=== PATIENT | male | born 1980 | race Caucasian/White ===

== ENCOUNTER 2018-05-26 08:35 | Inpatient (IN) | payer OTHER ==
[2018-05-26 08:59] VITALS: BMI 27.3
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
[2018-05-26] MEDS ORDERED: ACETAMINOPHEN 325 MG TABLET (FP) PO PRN (09:24)
[2018-05-26] MEDS ORDERED: MAGNESIUM CITRATE 300 ML BOTTLE PO PRN (09:24)
[2018-05-26] MEDS ORDERED: MENTHOL/PHENOL 1 EACH UD MM PRN (09:24)
[2018-05-26] MEDS ORDERED: MAG HYDROX/AL HYDROX/SIMETH 30 ML UNIT-DOSE CUP PO PRN (09:24)
[2018-05-26] MEDS ORDERED: LOPERAMIDE HCL 2 MG CAPSULE PO PRN (09:24)
[2018-05-26] MEDS ORDERED: guaiFENesin/D-METHORPHAN HB 10 ML UNIT-DOSE CUPS PO PRN (09:24)
[2018-05-26] MEDS ORDERED: MAGNESIUM HYDROX 2400MG/30ML ORAL SUSPENSION 30 ML CUP PO PRN (09:24)
[2018-05-26] MEDS ORDERED: hydrOXYzine PAMOATE 50 MG CAPSULE (FP) PO PRN (09:24)
[2018-05-26] MEDS ORDERED: P-EPHED 60MG/TRIPROLIDI 2.5MG TABLET PO PRN (09:24)
[2018-05-26] MEDS ORDERED: METHADONE HCL 10 MG TABLET (FOR DETOX USE ONLY) PO ONE ×2 (10:20→23:00)
[2018-05-26] MEDS: NICOTINE 21 MG/24 HOURS TOPICAL PATCH TD SCH (10:51)
[2018-05-26] MEDS: CYCLOBENZAPRINE HCL 10 MG TABLET (FP) PO PRN ×2 (10:53→22:24)
[2018-05-26] MEDS: cloNIDine HCL 0.1 MG TABLET PO SCH ×2 (10:53→22:24)
[2018-05-26] MEDS: diazePAM 5 MG TABLET PO PRN ×3 (10:53→22:24)
[2018-05-26] MEDS: PRENATAL VITAMINS W/ FOLIC ACID TABLET (FP) PO SCH (10:54)
[2018-05-26] MEDS: IBUPROFEN 400 MG TABLET (FP) PO PRN ×2 (10:59→17:10)
--- NOTE | 2018-05-26 13:32 | EKG ---
Test Reason : Blood Pressure : / mmHG Vent. Rate : 063 BPM Atrial Rate : 063 BPM P-R Int : 128 ms QRS Dur : 092 ms QT Int : 372 ms P-R-T Axes : 032 051 040 degrees QTc Int : 380 ms NORMAL SINUS RHYTHM NORMAL ECG NO PREVIOUS ECGS AVAILABLE Confirmed by CHAPITO MURRAY MD ([id number]) on 05/26/2018 1:32:48 PM Referred By: Confirmed By:CHAPITO MURRAY MD
--- NOTE | 2018-05-26 14:15 | CONSULT ---
[facility] Psychiatric Consult - Data Date of interview: 05/26/18 Admission source: [facility] Identifying data: First admission to [facility] for this 37 y/o male seeking detoxification treatment, on , for heroin, cocaine (crack) and alcohol dependence. Patient is single, a father of two, homeless, unemployed and currently without income. Substance Abuse History: Confirmed by the patient in this interview. Details in [facility] report : Smoking history: Current every day smoker. Have you smoked in the past 12 months: Yes. Aproximately how many cigarettes per day: 20. Cigars Per Day: 0. Hx Chewing Tobacco Use: No. Initiated information on smoking cessation: Yes. 'Breaking Loose' booklet given: 05/26/18. - Substance & Tx. History. Hx Alcohol Use: Yes. Hx Substance Use: Yes. Substance Use Type : Alcohol, Cocaine, Heroin. Hx Substance Use [facility]: [facility] - Substances Abused. Heroin. Route: Injection. Frequency: Daily. Amount used: 8 to 10 bags. Age of first use: 36. Date of Last Use: 05/25/18. Cocaine. Route: Smoking. Frequency: 1-2 times per week. Amount used: 100$ . Age of first use: 36. Date of Last Use: 05/25/18. Alcohol. Route: Oral. Frequency: 1-2 times per week. Amount used: 4 of 24 ozs of beer. Age of first use: 13. Date of Last Use: 05/25/18 Medical History: History of spinal fusion. Patient endorses good general health. Recent history of overdose with heroin (saved by naloxone on 05/25/18) as per self-report. Psychiatric History: No reported history of psychiatric hospitalizations. Patient indicates that he has been diagnosed with Bipolar Disorder (2007). Treated in [facility] (just released a week ago after four years of incarceration). managed on a regimen of wellbutrin SR 200 mg po bid + trazodone 100 mg hs + zyprexa 10 mg po hs. No referral to OPD care. Mr Alexandre denies history of suicide attempts. Physical/Sexual Abuse/Trauma History: Stressors : homelessness, estrangement from relatives, unemployment, years of incarceration, financial difficulties and lack of vocational skills. Patient denies history of abuse. Additional Comment: Urine Drug Screen Results: RIC-Cocaine, OPI-Opiates. Noted. Mental Status Exam - Mental Status Exam Alert and Oriented to: Time, Place, Person Cognitive Function: Good Patient Appearance: Well Groomed (muscular built, tattoos on both forearms) Mood: Nervous, Anxious, Hopeful Affect: Appropriate, Normal Range Patient Behavior: Fatigued, Cooperative Speech Pattern: Clear, Appropriate Voice Loudness: Normal Thought Process: Goal Oriented Thought Disorder: Not Present Hallucinations: Denies Suicidal Ideation: Denies Homicidal Ideation: Denies Insight/Judgement: Fair Sleep: Poorly, Difficulty falling asleep Appetite: Good Muscle strength/Tone: Normal Gait/Station: Normal Psychiatric Findings - Problem List ([place] 1, 2,3) (1) Opioid dependence with withdrawal Current Visit: Yes Status: Acute (2) Alcohol abuse Current Visit: Yes Status: Acute (3) Cocaine dependence Current Visit: Yes Status: Acute (4) Nicotine dependence Current Visit: Yes Status: Acute (5) Substance induced mood disorder Current Visit: Yes Status: Acute (6) Bipolar disorder Current Visit: Yes Status: Chronic Comment: As per self-report. On medications. Treated in alf until release a week ago. (7) Insomnia Current Visit: Yes Status: Acute - Initial Treatment Plan Initial Treatment Plan: Psychoeducation. Sleep hygiene. Detoxification in process. AA/NA meetings. Relapse prevention discussed with the patient ( naltrexone, suboxone, methadone, AA/NA doctrine, counseling). Resume medications : trazodone 100 mg po hs + wellbutrin XL 300 mg po daily ( substitution for SR formulation). Side effects/benefits of each drug are discussed with the patient. Made aware of risks of seizures, metabolic syndrome , cardiovascular adverse events and priapism. Patient is in agreement with this plan of care. Consent (verbal) : given. Observation.
[2018-05-26 21:54] LABS: URINE APPEARANCE CLEAR; URINE BILIRUBIN NEGATIVE (<2.0 mg/dL); URINE COLOR LTYELLOW; URINE GLUCOSE (UA) NEGATIVE (NEGATIVE); URINE KETONE NEGATIVE (NEGATIVE); URINE LEUK ESTERASE NEGATIVE (NEGATIVE); URINE NITRITE NEGATIVE (NEGATIVE); URINE PROTEIN NEGATIVE (NEGATIVE); URINE UROBILINOGEN NEGATIVE mg/dL (0.2-1.0)
[2018-05-26] MEDS ORDERED: MELATONIN 5 MG TABLETS PO PRN (22:00)
[2018-05-26] MEDS: OLANZapine 10 MG TABLET PO SCH (22:24)
[2018-05-26] MEDS: THIAMINE HCL 100 MG TABLET (FP) PO SCH (22:24)
[2018-05-26] MEDS: traZODone HCL 100 MG TABLET (FP) PO SCH (22:24)
[2018-05-26] MEDS: NICOTINE POLACRILEX 2 MG GUM BUC PRN (22:25)
[2018-05-27] MEDS ORDERED: METHADONE HCL 10 MG TABLET (FOR DETOX USE ONLY) PO ONE (10:00)
[2018-05-27] MEDS: CYCLOBENZAPRINE HCL 10 MG TABLET (FP) PO PRN ×2 (10:13→22:06)
[2018-05-27] MEDS: NICOTINE 21 MG/24 HOURS TOPICAL PATCH TD SCH (10:13)
[2018-05-27] MEDS: cloNIDine HCL 0.1 MG TABLET PO SCH ×2 (10:13→22:04)
[2018-05-27] MEDS: PRENATAL VITAMINS W/ FOLIC ACID TABLET (FP) PO SCH (10:13)
[2018-05-27] MEDS: diazePAM 5 MG TABLET PO PRN ×3 (10:13→22:04)
[2018-05-27] MEDS: NICOTINE POLACRILEX 2 MG GUM BUC PRN ×2 (10:13→13:30)
[2018-05-27 10:17] LABS: HEMATOCRIT 42.4 % (35.4-49); HEMOGLOBIN 14.2 GM/dL (11.7-16.9); MCH 30.9 pg (25.7-33.7); MCHC 33.6 g/dl (32.0-35.9); MEAN PLT VOLUME 8.4 fl (7.5-11.1); PLATELET COUNT 249 K/MM3 (134-434); RBC 4.61 M/mm3 (4.00-5.60); RDW 13.7 % (11.9-15.9); WHITE BLOOD COUNT 8.2 K/mm3 (4.0-10.0)
[2018-05-27 10:44] LABS: ALBUMIN 4.2 g/dl (3.4-5.0); ALK PHOS 99 U/L (45-117); ANION GAP 9 MMOL/L (8-16); BILIRUBIN,TOTAL 0.5 mg/dL (0.2-1); BLOOD UREA NITROGEN 15 mg/dL (7-18); CALCIUM 8.1 mg/dL (8.5-10.1); CHLORIDE 100 mmol/L (98-107); CO2 30 mmol/L (21-32); CREATININE 0.9 mg/dL (0.55-1.3); GLUCOSE,RANDOM 104 mg/dL (74-106); SGOT/AST 262 U/L (15-37); SGPT/ALT 169 U/L (13-61); SODIUM 139 mmol/L (136-145); TOT PROT 6.8 g/dl (6.4-8.2)
[2018-05-27] MEDS: IBUPROFEN 400 MG TABLET (FP) PO PRN ×2 (11:03→22:06)
--- NOTE | 2018-05-27 13:49 | PN ---
[facility] COWS - Scale Resting Pulse: 1= [place] 81-100 Sweatin= Chills/Flushing Restless Observation: 3= Extraneous Movement Pupil Size: 0= Normal to Room Light Bone or Joint Aches: 2= Severe Diffuse Aches Runny Nose/ Eye Tearin= Runny Nose/Eyes GI Upset > 30mins: 3= Vomiting/Diarrhea Tremor Observation of Outstretched Hands: 2= Slight Tremor Visible Yawning Observation: 0= None Anxiety or Irritability: 2=Irritable/Anxious Goose Flesh Skin: 0=Smooth Skin COWS Score: 16 BHS Progress Note (SOAP) Subjective: Sweating, headache, nausea Objective: 05/27/18 13:44 Last Vital Signs Temp Pulse Resp BP Pulse Ox 98.0 F 97 H 18 113/72 05/27/18 13:10 05/27/18 13:10 05/27/18 13:10 05/27/18 13:10 Laboratory Tests 05/26/18 05/27/18 05/27/18 13:35 05:45 05:45 WBC 8.2 RBC 4.61 Hgb 14.2 Hct 42.4 MCV 92.0 MCH 30.9 MCHC 33.6 RDW 13.7 Plt Count 249 MPV 8.4 Sodium 139 Potassium 4.0 Chloride 100 Carbon Dioxide 30 Anion Gap 9 BUN 15 Creatinine 0.9 Creat Clearance w eGFR > 60 Random Glucose 104 Calcium 8.1 L Total Bilirubin 0.5 AST 262 H ALT 169 H Alkaline Phosphatase 99 Total Protein 6.8 Albumin 4.2 Urine Color Ltyellow Urine Appearance Clear Urine pH 6.0 Ur Specific [place] 1.012 Urine Protein Negative Urine Glucose (UA) Negative Urine Ketones Negative Urine Blood Negative Urine Nitrite Negative Urine Bilirubin Negative Urine Urobilinogen Negative Ur Leukocyte Esterase Negative Labs reviewed: AST 262, ALT 169 Assessment: 05/27/18 13:47 Withdrawal symptoms Noted with elevated LFTs Plan: Continue detox Encouraged PO water intake Elevated LFTs: probably r/t alcohol use; repeat AST, ALT
[2018-05-27] MEDS: traZODone HCL 100 MG TABLET (FP) PO SCH (22:04)
[2018-05-27] MEDS: OLANZapine 10 MG TABLET PO SCH (22:04)
[2018-05-27] MEDS: THIAMINE HCL 100 MG TABLET (FP) PO SCH (22:04)
[2018-05-28] MEDS ORDERED: METHADONE HCL 5 MG TABLET (FOR DETOX USE ONLY) PO ONE (10:00)
[2018-05-28] MEDS: cloNIDine HCL 0.1 MG TABLET PO SCH ×2 (10:09→22:22)
[2018-05-28] MEDS: diazePAM 5 MG TABLET PO PRN ×2 (10:09→17:10)
[2018-05-28] MEDS: NICOTINE 21 MG/24 HOURS TOPICAL PATCH TD SCH (10:09)
[2018-05-28] MEDS: PRENATAL VITAMINS W/ FOLIC ACID TABLET (FP) PO SCH (10:09)
[2018-05-28] MEDS: NICOTINE POLACRILEX 2 MG GUM BUC PRN ×2 (10:10→17:12)
[2018-05-28] MEDS: IBUPROFEN 400 MG TABLET (FP) PO PRN ×2 (10:11→17:10)
--- NOTE | 2018-05-28 12:05 | PN ---
BHS COWS - Scale Resting Pulse: 1= DE 81-100 Sweatin=Flushed/Facial Moisture Restless Observation: 0= Sits Still Pupil Size: 0= Normal to Room Light Bone or Joint Aches: 1= Mild Discomfort Runny Nose/ Eye Tearin= None GI Upset > 30mins: 0= None Tremor Observation of Outstretched Hands: 2= Slight Tremor Visible Yawning Observation: 0= None Anxiety or Irritability: 2=Irritable/Anxious Goose Flesh Skin: 0=Smooth Skin COWS Score: 8 BHS Progress Note (SOAP) Subjective: PATIENT C/O ANXIETY, INTERMITTENT SWEATING/SHAKES, BODY ACHES, SLEEP DISTURBANCE. Objective: 05/28/18 12:07 Vital Signs Temperature 97.1 F L 05/28/18 09:28 Pulse Rate 89 05/28/18 09:28 Respiratory Rate 18 05/28/18 09:28 Blood Pressure 117/68 05/28/18 09:28 O2 Sat by Pulse Oximetry (%) Laboratory Tests 05/26/18 05/27/18 05/27/18 13:35 05:45 05:45 WBC 8.2 RBC 4.61 Hgb 14.2 Hct 42.4 MCV 92.0 MCH 30.9 MCHC 33.6 RDW 13.7 Plt Count 249 MPV 8.4 Sodium 139 Potassium 4.0 Chloride 100 Carbon Dioxide 30 Anion Gap 9 BUN 15 Creatinine 0.9 Creat Clearance w eGFR > 60 Random Glucose 104 Calcium 8.1 L Total Bilirubin 0.5 AST 262 H ALT 169 H Alkaline Phosphatase 99 Total Protein 6.8 Albumin 4.2 Urine Color Ltyellow Urine Appearance Clear Urine pH 6.0 Ur Specific [place] 1.012 Urine Protein Negative Urine Glucose (UA) Negative Urine Ketones Negative Urine Blood Negative Urine Nitrite Negative Urine Bilirubin Negative Urine Urobilinogen Negative Ur Leukocyte Esterase Negative RPR Titer 05/27/18 05:45 WBC RBC Hgb Hct MCV MCH MCHC RDW Plt Count MPV Sodium Potassium Chloride Carbon Dioxide Anion Gap BUN Creatinine Creat Clearance w eGFR Random Glucose Calcium Total Bilirubin AST ALT Alkaline Phosphatase Total Protein Albumin Urine Color Urine Appearance Urine pH Ur Specific [place] Urine Protein Urine Glucose (UA) Urine Ketones Urine Blood Urine Nitrite Urine Bilirubin Urine Urobilinogen Ur Leukocyte Esterase RPR Titer Nonreactive PE: ALERT AND ORIENTED X 3 SKIN WARM, +FACIAL MOISTURE CAR S1S2 RESP CTA BL EXT FULL ROM. MILD TREMORS AMB AD LELO ANXIOUS 05/28/18 12:11 Assessment: 05/28/18 12:09 WITHDRAWAL SX Plan: CONTINUE DETOX ENCOURAGE ORAL FLUIDS REPEAT CMP CONTINUE TO MONITOR CLINICALLY
[2018-05-28] MEDS: traZODone HCL 100 MG TABLET (FP) PO SCH (22:22)
[2018-05-28] MEDS: CYCLOBENZAPRINE HCL 10 MG TABLET (FP) PO PRN (22:22)
[2018-05-28] MEDS: THIAMINE HCL 100 MG TABLET (FP) PO SCH (22:22)
[2018-05-28] MEDS: OLANZapine 10 MG TABLET PO SCH (22:22)
[2018-05-29] MEDS ORDERED: METHADONE HCL 5 MG TABLET (FOR DETOX USE ONLY) PO ONE (10:00)
[2018-05-29] MEDS: cloNIDine HCL 0.1 MG TABLET PO SCH ×2 (10:21→22:10)
[2018-05-29] MEDS: NICOTINE 21 MG/24 HOURS TOPICAL PATCH TD SCH (10:21)
[2018-05-29] MEDS: PRENATAL VITAMINS W/ FOLIC ACID TABLET (FP) PO SCH (10:21)
[2018-05-29] MEDS: CYCLOBENZAPRINE HCL 10 MG TABLET (FP) PO PRN ×2 (10:35→22:10)
[2018-05-29] MEDS: IBUPROFEN 400 MG TABLET (FP) PO PRN ×2 (10:35→22:11)
--- NOTE | 2018-05-29 10:55 | PN ---
[facility] Progress Note Note: PATIENT CONTINUES WITH METHADONE DETOX REGIMEN. C/O SLEEP DISTURBANCE, FELL BACK ASLEEP DURING EVALUATION. Vital Signs Temperature 97.5 F L 05/29/18 09:26 Pulse Rate 81 05/29/18 09:26 Respiratory Rate 18 05/29/18 09:26 Blood Pressure 109/65 05/29/18 09:26 O2 Sat by Pulse Oximetry (%) Laboratory Tests 05/26/18 05/27/18 05/27/18 13:35 05:45 05:45 WBC 8.2 RBC 4.61 Hgb 14.2 Hct 42.4 MCV 92.0 MCH 30.9 MCHC 33.6 RDW 13.7 Plt Count 249 MPV 8.4 Sodium 139 Potassium 4.0 Chloride 100 Carbon Dioxide 30 Anion Gap 9 BUN 15 Creatinine 0.9 Creat Clearance w eGFR > 60 Random Glucose 104 Calcium 8.1 L Total Bilirubin 0.5 AST 262 H ALT 169 H Alkaline Phosphatase 99 Total Protein 6.8 Albumin 4.2 Urine Color Ltyellow Urine Appearance Clear Urine pH 6.0 Ur Specific [place] 1.012 Urine Protein Negative Urine Glucose (UA) Negative Urine Ketones Negative Urine Blood Negative Urine Nitrite Negative Urine Bilirubin Negative Urine Urobilinogen Negative Ur Leukocyte Esterase Negative RPR Titer 05/27/18 05:45 WBC RBC Hgb Hct MCV MCH MCHC RDW Plt Count MPV Sodium Potassium Chloride Carbon Dioxide Anion Gap BUN Creatinine Creat Clearance w eGFR Random Glucose Calcium Total Bilirubin AST ALT Alkaline Phosphatase Total Protein Albumin Urine Color Urine Appearance Urine pH Ur Specific [place] Urine Protein Urine Glucose (UA) Urine Ketones Urine Blood Urine Nitrite Urine Bilirubin Urine Urobilinogen Ur Leukocyte Esterase RPR Titer Nonreactive ALERT AND ORIENTED SLEEPY EXT NO EDEMA EXAM LIMITED DUE TO SLEEPINESS A/P WITHDRAWAL SX CONTINUE DETOX REGIMEN CONTINUE TO MONITOR
[2018-05-29 11:26] LABS: ALBUMIN 3.3 g/dl (3.4-5.0); ALK PHOS 85 U/L (45-117); ANION GAP 10 MMOL/L (8-16); BILIRUBIN,TOTAL 0.5 mg/dL (0.2-1); BLOOD UREA NITROGEN 11 mg/dL (7-18); CHLORIDE 100 mmol/L (98-107); CO2 28 mmol/L (21-32); CREATININE 0.7 mg/dL (0.55-1.3); GLUCOSE,RANDOM 94 mg/dL (74-106); POTASSIUM 4.1 mmol/L (3.5-5.1); SGOT/AST 99 U/L (15-37); SGPT/ALT 167 U/L (13-61); SODIUM 138 mmol/L (136-145); TOT PROT 5.8 g/dl (6.4-8.2)
[2018-05-29] MEDS: THIAMINE HCL 100 MG TABLET (FP) PO SCH (22:10)
[2018-05-29] MEDS: OLANZapine 10 MG TABLET PO SCH (22:10)
[2018-05-29] MEDS: traZODone HCL 100 MG TABLET (FP) PO SCH (22:10)
[2018-05-29] MEDS: NICOTINE POLACRILEX 2 MG GUM BUC PRN (22:13)
[2018-05-30] MEDS ORDERED: METHADONE HCL 10 MG TABLET (FOR DETOX USE ONLY) PO ONE (10:00)
[2018-05-30] MEDS: cloNIDine HCL 0.1 MG TABLET PO SCH ×2 (10:15→22:16)
[2018-05-30] MEDS: PRENATAL VITAMINS W/ FOLIC ACID TABLET (FP) PO SCH (10:15)
[2018-05-30] MEDS: NICOTINE 21 MG/24 HOURS TOPICAL PATCH TD SCH (10:15)
[2018-05-30] MEDS: IBUPROFEN 400 MG TABLET (FP) PO PRN ×2 (10:17→17:10)
[2018-05-30] MEDS: CYCLOBENZAPRINE HCL 10 MG TABLET (FP) PO PRN ×2 (10:17→22:16)
[2018-05-30] MEDS: NICOTINE POLACRILEX 2 MG GUM BUC PRN ×2 (10:20→17:11)
--- NOTE | 2018-05-30 11:42 | PN ---
[facility] Progress Note Note: PATIENT C/O SLEEP DISTURBANCE BUT FEELS BETTER. Laboratory Tests 05/26/18 05/27/18 05/27/18 13:35 05:45 05:45 WBC 8.2 RBC 4.61 Hgb 14.2 Hct 42.4 MCV 92.0 MCH 30.9 MCHC 33.6 RDW 13.7 Plt Count 249 MPV 8.4 Sodium 139 Potassium 4.0 Chloride 100 Carbon Dioxide 30 Anion Gap 9 BUN 15 Creatinine 0.9 Creat Clearance w eGFR > 60 Random Glucose 104 Calcium 8.1 L Total Bilirubin 0.5 AST 262 H ALT 169 H Alkaline Phosphatase 99 Total Protein 6.8 Albumin 4.2 Urine Color Ltyellow Urine Appearance Clear Urine pH 6.0 Ur Specific [place] 1.012 Urine Protein Negative Urine Glucose (UA) Negative Urine Ketones Negative Urine Blood Negative Urine Nitrite Negative Urine Bilirubin Negative Urine Urobilinogen Negative Ur Leukocyte Esterase Negative RPR Titer 05/27/18 05/29/18 05:45 07:00 WBC RBC Hgb Hct MCV MCH MCHC RDW Plt Count MPV Sodium 138 Potassium 4.1 Chloride 100 Carbon Dioxide 28 Anion Gap 10 BUN 11 Creatinine 0.7 Creat Clearance w eGFR > 60 Random Glucose 94 Calcium 8.0 L Total Bilirubin 0.5 AST 99 H ALT 167 H Alkaline Phosphatase 85 Total Protein 5.8 L Albumin 3.3 L Urine Color Urine Appearance Urine pH Ur Specific [place] Urine Protein Urine Glucose (UA) Urine Ketones Urine Blood Urine Nitrite Urine Bilirubin Urine Urobilinogen Ur Leukocyte Esterase RPR Titer Nonreactive PE: ALERT AND ORIENTED X 3 SKIN WARM AND DRY EXT FULL ROM, NO TREMORS AMB AD LELO A/P WITHDRAWAL SX CONTINUE DETOX REGIMEN ENCOURAGE ORAL FLUIDS FOR D/C IN AM
[2018-05-30] MEDS: traZODone HCL 100 MG TABLET (FP) PO SCH (22:16)
[2018-05-30] MEDS: OLANZapine 10 MG TABLET PO SCH (22:16)
[2018-05-30] MEDS: THIAMINE HCL 100 MG TABLET (FP) PO SCH (22:16)
[2018-05-31] MEDS ORDERED: METHADONE HCL 5 MG TABLET (FOR DETOX USE ONLY) PO ONE (06:00)
[2018-05-31] MEDS: NICOTINE 21 MG/24 HOURS TOPICAL PATCH TD SCH (10:03)
[2018-05-31] MEDS: cloNIDine HCL 0.1 MG TABLET PO SCH ×2 (10:04→22:16)
[2018-05-31] MEDS: PRENATAL VITAMINS W/ FOLIC ACID TABLET (FP) PO SCH (10:04)
[2018-05-31] MEDS: NICOTINE POLACRILEX 2 MG GUM BUC PRN (10:04)
[2018-05-31] MEDS: CYCLOBENZAPRINE HCL 10 MG TABLET (FP) PO PRN ×2 (10:06→22:16)
[2018-05-31] MEDS: IBUPROFEN 400 MG TABLET (FP) PO PRN ×2 (10:06→22:16)
--- NOTE | 2018-05-31 11:06 | PN ---
[facility] Progress Note (SOAP) Subjective: PT IS ALERT O X 3. DETOX PROCEEDED WEL. PT WAS REFERRED TO [facility] FOR AFTERCARE. PT MET WITH COUNSELOR, HERMILA THIS MORNING AND INFORMED PT WILL WAIT FOR BED AVAILABILITY. Objective: 05/31/18 11:05 Vital Signs 05/31/18 05/31/18 03:30 06:29 Temperature 97.3 F L Pulse Rate 82 Respiratory 18 18 Rate Blood Pressure 100/65 Assessment: 05/31/18 11:05 NAD Plan: [facility]
[2018-05-31] MEDS: OLANZapine 10 MG TABLET PO SCH (22:16)
[2018-05-31] MEDS: traZODone HCL 100 MG TABLET (FP) PO SCH (22:16)
[2018-05-31] MEDS: THIAMINE HCL 100 MG TABLET (FP) PO SCH (22:16)
[2018-06-01] MEDS: cloNIDine HCL 0.1 MG TABLET PO SCH ×2 (10:07→22:16)
[2018-06-01] MEDS: PRENATAL VITAMINS W/ FOLIC ACID TABLET (FP) PO SCH (10:07)
[2018-06-01] MEDS: CYCLOBENZAPRINE HCL 10 MG TABLET (FP) PO PRN ×2 (10:07→22:16)
[2018-06-01] MEDS: NICOTINE 21 MG/24 HOURS TOPICAL PATCH TD SCH (10:07)
[2018-06-01] MEDS: IBUPROFEN 400 MG TABLET (FP) PO PRN ×2 (10:08→22:16)
[2018-06-01] MEDS: NICOTINE POLACRILEX 2 MG GUM BUC PRN (10:08)
--- NOTE | 2018-06-01 15:17 | PN ---
[facility] Progress Note (SOAP) Subjective: Chills, tremor, nausea Objective: 06/01/18 15:15 Last Vital Signs Temp Pulse Resp BP Pulse Ox 98.1 F 83 18 101/64 06/01/18 13:22 06/01/18 13:22 06/01/18 13:22 06/01/18 13:22 Laboratory Tests 05/26/18 05/27/18 05/27/18 13:35 05:45 05:45 WBC 8.2 RBC 4.61 Hgb 14.2 Hct 42.4 MCV 92.0 MCH 30.9 MCHC 33.6 RDW 13.7 Plt Count 249 MPV 8.4 Sodium 139 Potassium 4.0 Chloride 100 Carbon Dioxide 30 Anion Gap 9 BUN 15 Creatinine 0.9 Creat Clearance w eGFR > 60 Random Glucose 104 Calcium 8.1 L Total Bilirubin 0.5 AST 262 H ALT 169 H Alkaline Phosphatase 99 Total Protein 6.8 Albumin 4.2 Urine Color Ltyellow Urine Appearance Clear Urine pH 6.0 Ur Specific [place] 1.012 Urine Protein Negative Urine Glucose (UA) Negative Urine Ketones Negative Urine Blood Negative Urine Nitrite Negative Urine Bilirubin Negative Urine Urobilinogen Negative Ur Leukocyte Esterase Negative RPR Titer 05/27/18 05/29/18 05:45 07:00 WBC RBC Hgb Hct MCV MCH MCHC RDW Plt Count MPV Sodium 138 Potassium 4.1 Chloride 100 Carbon Dioxide 28 Anion Gap 10 BUN 11 Creatinine 0.7 Creat Clearance w eGFR > 60 Random Glucose 94 Calcium 8.0 L Total Bilirubin 0.5 AST 99 H ALT 167 H Alkaline Phosphatase 85 Total Protein 5.8 L Albumin 3.3 L Urine Color Urine Appearance Urine pH Ur Specific [place] Urine Protein Urine Glucose (UA) Urine Ketones Urine Blood Urine Nitrite Urine Bilirubin Urine Urobilinogen Ur Leukocyte Esterase RPR Titer Nonreactive Labs reviewed Assessment: 06/01/18 15:15 Withdrawal symptoms Plan: Continue detox Encouraged PO water intake Patient awaiting rehab bed in [facility] as he is at increased risk of relapsing
[2018-06-01] MEDS: THIAMINE HCL 100 MG TABLET (FP) PO SCH (22:15)
[2018-06-01] MEDS: OLANZapine 10 MG TABLET PO SCH (22:16)
[2018-06-01] MEDS: traZODone HCL 100 MG TABLET (FP) PO SCH (22:16)
[2018-06-02 06:10] VITALS: TEMP 97.4
[2018-06-02 09:24] VITALS: BP 111/67; PULSE 95
[2018-06-02] MEDS: IBUPROFEN 400 MG TABLET (FP) PO PRN (10:03)
[2018-06-02] MEDS: CYCLOBENZAPRINE HCL 10 MG TABLET (FP) PO PRN (10:03)
[2018-06-02] MEDS: cloNIDine HCL 0.1 MG TABLET PO SCH (10:03)
[2018-06-02] MEDS: PRENATAL VITAMINS W/ FOLIC ACID TABLET (FP) PO SCH (10:03)
[2018-06-02] MEDS: NICOTINE 21 MG/24 HOURS TOPICAL PATCH TD SCH (10:04)
[2018-06-02] MEDS: NICOTINE POLACRILEX 2 MG GUM BUC PRN (10:06)
--- NOTE | 2018-06-02 10:36 | DS ---
[facility] Detox Discharge Summary Admission Date: 05/26/18 Discharge Date: 06/02/18 - History Present History: Alcohol Dependence, Opioid Dependence Additional Comments: 37 years old male admitted on 05/26/18 for alcohol and opiate withdrawal sx alert oriented x 3 no acute distress aftercare aden atc - Physical Exam Results Vital Signs: Vital Signs Temperature 97.4 F L 06/02/18 09:24 Pulse Rate 95 H 06/02/18 09:24 Respiratory Rate 20 06/02/18 09:24 Blood Pressure 111/67 06/02/18 09:24 O2 Sat by Pulse Oximetry (%) Pertinent Admission Physical Exam Findings: alcohol and opiate withdrawal sx Vital Signs Temperature 97.4 F L 06/02/18 09:24 Pulse Rate 95 H 06/02/18 09:24 Respiratory Rate 20 06/02/18 09:24 Blood Pressure 111/67 06/02/18 09:24 O2 Sat by Pulse Oximetry (%) Laboratory Last Values WBC 8.2 K/mm3 (4.0-10.0) 05/27/18 05:45 RBC 4.61 M/mm3 (4.00-5.60) 05/27/18 05:45 Hgb 14.2 GM/dL (11.7-16.9) 05/27/18 05:45 Hct 42.4 % (35.4-49) 05/27/18 05:45 MCV 92.0 fl (80-96) 05/27/18 05:45 MCH 30.9 pg (25.7-33.7) 05/27/18 05:45 MCHC 33.6 g/dl (32.0-35.9) 05/27/18 05:45 RDW 13.7 % (11.9-15.9) 05/27/18 05:45 Plt Count 249 K/MM3 (134-434) 05/27/18 05:45 MPV 8.4 fl (7.5-11.1) 05/27/18 05:45 Sodium 138 mmol/L (136-145) 05/29/18 07:00 Potassium 4.1 mmol/L (3.5-5.1) 05/29/18 07:00 Chloride 100 mmol/L (98-107) 05/29/18 07:00 Carbon Dioxide 28 mmol/L (21-32) 05/29/18 07:00 Anion Gap 10 MMOL/L (8-16) 05/29/18 07:00 BUN 11 mg/dL (7-18) 05/29/18 07:00 Creatinine 0.7 mg/dL (0.55-1.3) 05/29/18 07:00 Creat Clearance w eGFR > 60 (>60) 05/29/18 07:00 Random Glucose 94 mg/dL (74-106) 05/29/18 07:00 Calcium 8.0 mg/dL (8.5-10.1) L 05/29/18 07:00 Total Bilirubin 0.5 mg/dL (0.2-1) 05/29/18 07:00 AST 99 U/L (15-37) H 05/29/18 07:00 ALT 167 U/L (13-61) H 05/29/18 07:00 Alkaline Phosphatase 85 U/L (45-117) 05/29/18 07:00 Total Protein 5.8 g/dl (6.4-8.2) L 05/29/18 07:00 Albumin 3.3 g/dl (3.4-5.0) L 05/29/18 07:00 Urine Color Ltyellow 05/26/18 13:35 Urine Appearance Clear 05/26/18 13:35 Urine pH 6.0 (5.0-8.0) 05/26/18 13:35 Ur Specific [place] 1.012 (1.010-1.035) 05/26/18 13:35 Urine Protein Negative (NEGATIVE) 05/26/18 13:35 Urine Glucose (UA) Negative (NEGATIVE) 05/26/18 13:35 Urine Ketones Negative (NEGATIVE) 05/26/18 13:35 Urine Blood Negative (NEGATIVE) 05/26/18 13:35 Urine Nitrite Negative (NEGATIVE) 05/26/18 13:35 Urine Bilirubin Negative (<2.0 mg/dL) 05/26/18 13:35 Urine Urobilinogen Negative mg/dL (0.2-1.0) 05/26/18 13:35 Ur Leukocyte Esterase Negative (NEGATIVE) 05/26/18 13:35 RPR Titer Nonreactive (NONREACTIVE) 05/27/18 05:45 lab noted - Treatment Hospital Course: Detox Protocol Followed, Detoxed Safely, Responded well, Discharged Condition Good, Rehab Referral Accepted Patient has Accepted a Rehab Referral to: [facility] - Medication Discharge Medications: Ambulatory Orders Bupropion HCl [Wellbutrin Sr] 200 mg PO BID 05/26/18 Olanzapine [ZyPREXA -] 10 mg PO HS 05/26/18 traZODone HCL [Trazodone HCl] 100 mg PO HS 05/26/18 Bupropion HCl [Wellbutrin Xl] 300 mg PO DAILY #30 tab.er.[id number] 06/02/18 Olanzapine [Zyprexa] 10 mg PO HS #30 tablet 06/02/18 traZODone HCL [Trazodone HCl] 100 mg PO HS #30 tablet 06/02/18 - Diagnosis (1) Alcohol dependence with uncomplicated withdrawal Current Visit: Yes Status: Acute (2) Nicotine dependence Current Visit: Yes Status: Acute Qualifiers: Nicotine product type: cigarettes Substance use status: in withdrawal Qualified Code(s): F17.213 - Nicotine dependence, cigarettes, with withdrawal (3) Opioid dependence with withdrawal Current Visit: Yes Status: Acute (4) Substance induced mood disorder Current Visit: Yes Status: Suspected - AMA Did Patient Leave Against Medical Advice: No
== END 2018-06-02 13:13 | disposition home or self-care (01) | DRG 773 ==
LOC: YASAS 08:35 → Y3N 10:11
PROC: HZ2ZZZZ Detoxification Services for Substance Abuse Treatment (ICD-10-PCS; principal; 2018-05-26)
DX: F11.23 Opioid dependence with withdrawal (principal); F10.230 Alcohol dependence with withdrawal, uncomplicated; F14.20 Cocaine dependence, uncomplicated; F17.213 Nicotine dependence, cigarettes, with withdrawal; F19.24 Other psychoactive substance dependence with psychoactive substance-induced mood disorder; F31.9 Bipolar disorder, unspecified; G47.00 Insomnia, unspecified; R74.8 Abnormal levels of other serum enzymes; R63.4 Abnormal weight loss; Z68.27 Body mass index [BMI] 27.0-27.9, adult; Z98.1 Arthrodesis status
CPT/HCPCS: 36415; 80053; 81003; 85027; 86593; 93005; 93010; J0735